=== PATIENT | male | born 1970 | race Asian ===

== ENCOUNTER 2018-04-03 08:58 | Inpatient (IN) | payer BC, MEDICAID ==
[~2018-04-03] VITALS: Ht 162.6 cm; Wt 125.3 kg
[2018-04-03] MEDS ORDERED: cefTRIAXone 1GM/50ML D5W 50 ML IV ONE (09:15)
[2018-04-03 09:37] LABS: Basophils # (auto) 0.1 uL; Eosinophils # (auto) 0 uL; Eosinophils % (auto) 0.3 % (0.0-7.0); Lymphocytes # (auto) 1.8 uL; Monocytes # (auto) 1.8 uL
[2018-04-03 09:38] LABS: Basophils % (auto) 0.5 % (0.0-2.0); Hematocrit 50.5 % (41.0-53.0); Hemoglobin 16.2 g/dL (13.5-17.5); Lymphocytes % (auto) 13.2 % (10.0-50.0); Mean Corpuscular Hemoglobin 21.3 pg (28.0-32.0); Mean Corpuscular Volume 66.6 fL (80.0-100.0); Neutrophils # (auto) 10.1 uL; Nucleated Red Blood Cells % 0.4 %; Platelet Count (auto) 124 10^3/uL (140-450); Red Blood Cells 7.58 10^6/uL (4.5-5.90); Red Cell Distribution Width 18.6 % (11.8-14.3); White Blood Cell 13.8 10^3/uL (4.4-10.8)
[2018-04-03 09:50] LABS: INR 1.28 (0.9-1.15); Partial Thromboplastin Time 27.3 sec (23.78-33.04); Prothrombin Time 13.5 sec (9.27-12.13)
[2018-04-03 09:54] LABS: Alanine Aminotransferase 24 U/L (16-61); Albumin 3.4 g/dL (3.4-5.0); Anion Gap 7 (5-15); Aspartate Aminotransferase 23 U/L (15-37); BUN/Creatinine Ratio 14.6; Blood Urea Nitrogen 13 mg/dL (7-18); Calcium 7.9 mg/dL (8.5-10.1); Carbon Dioxide 32 mmol/L (21-32); Chloride 99 mmol/L (98-107); GFR African American 119 mL/min; GFR Non-African American 98 mL/min; Glucose 92 mg/dL (74-106); Magnesium 2.3 mg/dL (1.6-2.6); Sodium 138 mmol/L (136-145)
[2018-04-03 09:59] LABS: Alkaline Phosphatase 41 U/L (45-117); Bilirubin, Total 1.8 mg/dL (0.2-1.0); Total Protein 7.4 g/dL (6.4-8.2)
[2018-04-03 10:14] LABS: Urine Bacteria NONE SEEN /hpf (None Seen); Urine Blood Negative /uL (Negative); Urine Mucus FEW (None Seen); Urine Specific Gravity 1.029 (1.001-1.035); Urine WBC 1 /hpf (0 - 3)
[2018-04-03] MEDS ORDERED: AZITHROMYCIN 500MG/ 250ML 250 ML IV ONE (10:15)
[2018-04-03] MEDS ORDERED: NITROGLYCERIN 0.4 MG SL TAB SL PRN (12:30)
[2018-04-03] MEDS ORDERED: MORPHINE SULFATE 10 MG/ML INJ 1ML SDV IV PRN (12:30)
[2018-04-03] MEDS ORDERED: ACET250T3 PO (14:56)
[2018-04-03] MEDS ORDERED: ASP81EC PO (14:56)
[2018-04-03] MEDS ORDERED: ALBUAER3 IN (14:56)
[2018-04-03] MEDS ORDERED: PRE5T (14:56)
[2018-04-03] MEDS ORDERED: METO25TA62 PO (14:56)
[2018-04-03] MEDS ORDERED: LISI2.5T47 PO (14:56)
[2018-04-03] MEDS ORDERED: ATOR40TA52 PO (14:56)
[2018-04-03] MEDS ORDERED: FURO40TA4 PO (14:56)
[2018-04-03] MEDS ORDERED: TOPI25CA5 PO (14:56)
[2018-04-03] MEDS ORDERED: NIFE30TA76 PO (14:56)
[2018-04-03] MEDS: BUDESONIDE (INHALATION) 0.5 MG/2 ML NEB NEB SCH (18:00)
[2018-04-03] MEDS: ALBUTEROL SULF 2.5 MG/0.5ML(0.5%) NEB SOLN NEB SCH (18:00)
[2018-04-03] MEDS: IPRATROPIUM BROM 0.5 MG/2.5ML INH SOL NEB SCH (18:00)
[2018-04-03] MEDS: ATORVASTATIN 20 MG TAB PO SCH (21:41)
[2018-04-03 22:00] VITALS: BP 103/62
--- NOTE | 2018-04-03 22:15 | NUR ---
TELE ADMIT FROM ER RECEIVED PATIENT VIA WHEELCHAIR FROM ER. PATIENT A/O X4, AMBULATORY. NO S/S OF DISTRESS, PATIENT BECOMES SOB WITH EXERTION. PT ON 3L NC, RT AT BEDSIDE SETTING UP CPAP. PATIENT ON TELE MONITOR #6 AND TELE READING IS SINUS RHYTHM @86. PATIENT SKIN INTACT, ECCHYMOSIS NOTED TO LEFT AND RIGHT SHOULDER, PATIENT STATES "IN MY CULTURE WE BELIEVE IN COINING SO THATS WHAT THE BRUISING IS FROM". PATIENT DENIES PAIN AT THIS TIME. UPDATED PATIENT ON PLAN OF CARE, VERBALIZED UNDERSTANDING. BED LOCKED IN LOW POSITION, CALL LIGHT WITHIN REACH, WILL CONTINUE TO MONITOR PATIENT Q1HR AND PRN.
[2018-04-03] MEDS ORDERED: INFLUENZA QUAD 2018-2019 0.5 ML SYRG IM ONE (23:30)
--- NOTE | 2018-04-04 00:40 | NUR ---
RT NOTE PT PLACED ON BIPAP ON STATED SETTINGS WITH MEDIUM MASK. BIPAP IS PLUGGED TO RED OUTLET. LEAK TEST DONE AND PASSED. ALARMS ARE ON AND AUDIBLE AT NURSES STATION. PT ON BEDSIDE POX PER PROTOCOL.PT SHOWN THE QUICK RELEASE CLIPS ON MASK AND APPEARS TO UNDERSTAND. PT APPEARS TO TOLERATE CURRENT SETTINGS AT THIS TIME. CONT ORDERED SPO2 99% Addendum: 04/05/18 at 0004 by Ana Avery RT Amended: Links added.
[2018-04-04] MEDS: ALBUTEROL SULF 2.5 MG/0.5ML(0.5%) NEB SOLN NEB SCH ×5 (00:46→19:25)
[2018-04-04] MEDS: IPRATROPIUM BROM 0.5 MG/2.5ML INH SOL NEB SCH ×5 (00:46→19:24)
[2018-04-04 03:29] VITALS: BP 103/62
[2018-04-04 05:00] VITALS: BP 124/86
[2018-04-04] MEDS: BUDESONIDE (INHALATION) 0.5 MG/2 ML NEB NEB SCH ×2 (06:06→18:33)
[2018-04-04 06:14] LABS: Basophils # (auto) 0.1 uL; Basophils % (auto) 0.7 % (0.0-2.0); Eosinophils # (auto) 0.1 uL; Eosinophils % (auto) 1.4 % (0.0-7.0); Hematocrit 48.1 % (41.0-53.0); Hemoglobin 15.3 g/dL (13.5-17.5); Lymphocytes # (auto) 2.1 uL; Lymphocytes % (auto) 19.6 % (10.0-50.0); Mean Corpuscular Hemoglobin 21.4 pg (28.0-32.0); Mean Corpuscular Hgb Conc. 31.8 g/dL (32.0-36.0); Mean Corpuscular Volume 67.2 fL (80.0-100.0); Monocytes # (auto) 1.2 uL; Monocytes % (auto) 11.3 % (0.0-12.0); Neutrophils # (auto) 7.2 uL; Nucleated Red Blood Cells % 0.6 %; Platelet Count (auto) 107 10^3/uL (140-450); Red Blood Cells 7.16 10^6/uL (4.5-5.90); Red Cell Distribution Width 19.1 % (11.8-14.3); White Blood Cell 10.8 10^3/uL (4.4-10.8)
[2018-04-04 06:17] LABS: Albumin 3.3 g/dL (3.4-5.0); Calcium 7.7 mg/dL (8.5-10.1); Magnesium 2.5 mg/dL (1.6-2.6); Potassium 4.2 mmol/L (3.5-5.1)
[2018-04-04 06:22] LABS: BUN/Creatinine Ratio 22.4; Total Protein 7.2 g/dL (6.4-8.2)
--- NOTE | 2018-04-04 07:27 | NUR ---
Opening Shift Note Assumed care of patient, awake and alert. No S/S of distress/SOB, reports chest pain from coughing. Insructed on POC and to call for assist PRN, will continue to monitor for changes Q1hr and PRN.
[2018-04-04] MEDS ORDERED: HYDROmorphone HCL 2 MG/ML VL IV PRN (07:45)
[2018-04-04] MEDS: HYDROcodone-ACET 10/325MG TAB PO PRN ×2 (08:30→16:00)
[2018-04-04 08:42] VITALS: BP 100/60
[2018-04-04] MEDS: cefTRIAXone 1GM/50ML D5W 50 ML IV SCH (09:01)
[2018-04-04] MEDS ORDERED: FUROSEMIDE 20 MG TAB PO SCH (10:00)
[2018-04-04] MEDS ORDERED: CLOPIDOGREL BISULFATE 75 MG TAB PO SCH (10:00)
[2018-04-04] MEDS: AZITHROMYCIN 500MG/ 250ML 250 ML IV SCH (10:47)
[2018-04-04] MEDS: ASPirin-EC 81 mg tab PO SCH (11:03)
[2018-04-04] MEDS: PANTOPRAZOLE 40 MG/10 ML VIAL IV SCH (11:03)
--- NOTE | 2018-04-04 12:00 | NUR ---
RECEIVED PATIENT RECEIVED PATIENT. PATIENT ALERT AND AWAKE LAYING IN BED. PATIENT IS ON 2 L NC WITH EVEN AND UNLABORED RESPIRATIONS. NO S/S OF DISTRESS/SOB. PATIENT STATES PAIN IS 3/10 UPPER SIDE/LOWER CHEST. PATIENT DECLINES PAIN MEDICATIONS AT THIS TIME AND STATES HE MIGHT REQUEST IT LATER. WILL CONTINUE TO MONITOR Q1H AND PRN.
[2018-04-04 12:52] VITALS: BP 91/56
[2018-04-04] MEDS ORDERED: methylPREDNISolone SOD SUCC 40 MG/ML VL IV ONE (14:45)
[2018-04-04] MEDS ORDERED: FUROSEMIDE 40 MG/4 ML VIAL IV ONE (14:45)
--- NOTE | 2018-04-04 15:10 | NUR ---
URINE DRUG SCREEN COLLECTED AN SENT TO LAB VIA BULLET.
--- NOTE | 2018-04-04 15:30 | NUR ---
I faxed clinical information to [facility] and [facility] including ER notes, H&P, labs, vitals, medication list and MD progress notes.
[2018-04-04 15:40] LABS: Alcohol, Urine < 3.0 mg/dL (0-5); Amphetamine Screen, Urine NEGATIVE (NEGATIVE); Barbiturate Scree,Urine NEGATIVE (NEGATIVE); Benzodiazephine Screen, Urine NEGATIVE (NEGATIVE); Cannabinoid Screen, Urine NEGATIVE (NEGATIVE); Cocaine Screen, Urine NEGATIVE (NEGATIVE); Opiate Scree,Urine NEGATIVE (NEGATIVE); Phencyclidine Screen, Urine NEGATIVE (NEGATIVE)
--- NOTE | 2018-04-04 16:15 | NUR ---
SPUTUM CULTURE COLLECTED AND SENT TO LAB VIA BULLET.
[2018-04-04 16:41] VITALS: BP 121/66
[2018-04-04] MEDS: TOPIRAMATE 25 MG TAB PO SCH (17:12)
--- NOTE | 2018-04-04 17:15 | NUR ---
RAPID FLU A&B COLLECTED AND SENT TO LAB VIA BULLET
--- NOTE | 2018-04-04 19:15 | NUR ---
Closing Note Patient awake and alert. No S/S of distress/SOB or pain at this time. Care endorsed to reyna YUNG RN.
--- NOTE | 2018-04-04 19:40 | NUR ---
OPENING SHIFT NOTE RECEIVED REPORT FROM DAYSHIFT RN. PATIENT RESTING SITTING UP IN BED, NO S/S OF DISTRESS OR SOB. PATIENT DENIES PAIN AT THIS TIME. PT A/O X4, AMBULATORY, ON 3L NC. PT UPDATED ON POC, VERBALIZED UNDERSTANDING. BED LOCKED IN LOW POSITION, CALL LIGHT WITHIN REACH. WILL CONTINUE TO MONITOR PATIENT Q1HR AND PRN.
[2018-04-04] MEDS: ATORVASTATIN 20 MG TAB PO SCH (21:55)
[2018-04-04 22:00] VITALS: BP 109/74
[2018-04-05 04:54] VITALS: BP 124/82
[2018-04-05] MEDS: BUDESONIDE (INHALATION) 0.5 MG/2 ML NEB NEB SCH ×2 (05:46→20:00)
[2018-04-05] MEDS: IPRATROPIUM BROM 0.5 MG/2.5ML INH SOL NEB SCH ×3 (05:46→20:00)
[2018-04-05] MEDS: ALBUTEROL SULF 2.5 MG/0.5ML(0.5%) NEB SOLN NEB SCH ×3 (05:46→20:00)
[2018-04-05 06:52] LABS: Basophils # (auto) 0 uL; Eosinophils # (auto) 0 uL; Eosinophils % (auto) 0.2 % (0.0-7.0); Hemoglobin 15.4 g/dL (13.5-17.5)
[2018-04-05 06:54] LABS: Basophils % (auto) 0.2 % (0.0-2.0); Hematocrit 48.4 % (41.0-53.0); Lymphocytes # (auto) 1.2 uL; Lymphocytes % (auto) 13.2 % (10.0-50.0); Mean Corpuscular Hemoglobin 21.5 pg (28.0-32.0); Mean Corpuscular Hgb Conc. 31.9 g/dL (32.0-36.0); Mean Corpuscular Volume 67.4 fL (80.0-100.0); Monocytes # (auto) 0.5 uL; Neutrophils # (auto) 7.2 uL; Neutrophils % (auto) 80.4 % (37.0-80.0); Nucleated Red Blood Cells % 0.7 %; Platelet Count (auto) 105 10^3/uL (140-450); Red Blood Cells 7.18 10^6/uL (4.5-5.90); Red Cell Distribution Width 18.6 % (11.8-14.3)
[2018-04-05 07:00] LABS: Chloride 92 mmol/L (98-107); Potassium 4.4 mmol/L (3.5-5.1); Sodium 135 mmol/L (136-145)
[2018-04-05 07:16] LABS: Anion Gap 5 (5-15); BUN/Creatinine Ratio 21.3; Blood Urea Nitrogen 16 mg/dL (7-18); Carbon Dioxide 38 mmol/L (21-32); GFR African American 145 mL/min; GFR Non-African American 120 mL/min; Glucose 79 mg/dL (74-106)
[2018-04-05 07:17] LABS: Calcium 8.3 mg/dL (8.5-10.1)
[2018-04-05 08:53] VITALS: BP 115/75
[2018-04-05] MEDS: ASPirin-EC 81 mg tab PO SCH (09:57)
[2018-04-05] MEDS: cefTRIAXone 1GM/50ML D5W 50 ML IV SCH (09:57)
[2018-04-05] MEDS: CLOPIDOGREL BISULFATE 75 MG TAB PO SCH (09:58)
[2018-04-05] MEDS: AZITHROMYCIN 500MG/ 250ML 250 ML IV SCH (09:59)
[2018-04-05] MEDS: LISINOPRIL 5 MG TAB PO SCH (09:59)
[2018-04-05] MEDS: FUROSEMIDE 40 MG/4 ML VIAL IV SCH (09:59)
[2018-04-05] MEDS: methylPREDNISolone SOD SUCC 40 MG/ML VL IV SCH (10:00)
[2018-04-05] MEDS ORDERED: ASPirin-EC 81 mg tab PO SCH (10:00)
[2018-04-05] MEDS: ENOXAPARIN SOD 40 MG/0.4 ML SYRINGE SC SCH (10:00)
[2018-04-05] MEDS ORDERED: INFLUENZA QUAD 2018-2019 0.5 ML SYRG IM ONE (10:20)
[2018-04-05] MEDS: PANTOPRAZOLE 40 MG/10 ML VIAL IV SCH (10:53)
[2018-04-05] MEDS: TOPIRAMATE 25 MG TAB PO SCH (10:53)
[2018-04-05 13:00] VITALS: BP 101/64
[2018-04-05 13:38] LABS: Hepatitis B Surface Antibody Positive
[2018-04-05 14:15] LABS: Hepatitis A Total Antibody Positive
[2018-04-05 15:29] LABS: Hepatitis B Surface Antigen Negative (Negative); Hepatitis C Antibody Negative (Negative)
[2018-04-05 15:30] LABS: Hepatitis B Core Total AB Negative
[2018-04-05 16:47] VITALS: BP 93/63
--- NOTE | 2018-04-05 19:24 | NUR ---
CLOSING NOTE SHIFT REPORT GIVEN TO AIRPORT RAMP ATTENDANT RNJEREMI. PATIENT IN BED LOW LOCK POSITION, CALL LIGHT IN REACH. IV PATENT. NO S/S OF DISTRESS, PAIN, SOB.
--- NOTE | 2018-04-05 19:45 | NUR ---
Opening Shift Note Assumed care of patient, awake and alert. No S/S of distress/SOB or pain. Instructed on POC and to call for assist PRN. Bed in lowest locked position, call light within reach, side rails up x2. Will continue to monitor for changes Q1hr and PRN.
--- NOTE | 2018-04-05 19:50 | NUR ---
Opening Shift Note Assumed care of patient, awake and alert. Patient currently shivering aggressively and stating "I'm cold" blood sugar and blood pressure checked and are within normal limits. Girlfriend at bedside, states "he always gets like this after he gets home from dialysis." Instructed on POC and to call for assist PRN. Bed in lowest locked position call light within reach, siderails up x2. Will continue to monitor for changes Q1hr and PRN. Addendum: 04/06/18 at 0139 by JEREMI BRADEN OCA, RN Discard this opening shift note, incorrect patient.
[2018-04-05] MEDS: ATORVASTATIN 20 MG TAB PO SCH (21:23)
[2018-04-05 21:50] VITALS: BP 105/54
[2018-04-06] MEDS: ALBUTEROL SULF 2.5 MG/0.5ML(0.5%) NEB SOLN NEB SCH ×4 (01:12→19:38)
[2018-04-06] MEDS: IPRATROPIUM BROM 0.5 MG/2.5ML INH SOL NEB SCH ×4 (01:12→19:38)
[2018-04-06 04:39] VITALS: BP 99/69
[2018-04-06 05:56] LABS: Basophils # (auto) 0 uL; Basophils % (auto) 0.2 % (0.0-2.0); Eosinophils # (auto) 0.1 uL; Lymphocytes # (auto) 1.4 uL
[2018-04-06 06:01] LABS: Eosinophils % (auto) 0.9 % (0.0-7.0); Hematocrit 48.3 % (41.0-53.0); Hemoglobin 15.7 g/dL (13.5-17.5); Lymphocytes % (auto) 16.7 % (10.0-50.0); Mean Corpuscular Hemoglobin 21.7 pg (28.0-32.0); Mean Corpuscular Hgb Conc. 32.4 g/dL (32.0-36.0); Mean Corpuscular Volume 66.7 fL (80.0-100.0); Monocytes # (auto) 0.9 uL; Monocytes % (auto) 10.4 % (0.0-12.0); Neutrophils # (auto) 6.2 uL; Neutrophils % (auto) 71.8 % (37.0-80.0); Nucleated Red Blood Cells % 0.2 %; Platelet Count (auto) 147 10^3/uL (140-450); Red Blood Cells 7.24 10^6/uL (4.5-5.90); Red Cell Distribution Width 18.4 % (11.8-14.3); White Blood Cell 8.7 10^3/uL (4.4-10.8)
[2018-04-06] MEDS: BUDESONIDE (INHALATION) 0.5 MG/2 ML NEB NEB SCH ×2 (06:15→08:33)
[2018-04-06 06:17] LABS: Calcium 8.3 mg/dL (8.5-10.1); Potassium 3.5 mmol/L (3.5-5.1)
[2018-04-06 06:20] LABS: BUN/Creatinine Ratio 22.5
--- NOTE | 2018-04-06 06:30 | NUR ---
PT WAS REMOVED FROM THE BIPAP AND PLACED ON A 3L NC. NO SOB NOTED. PT IS AWARE TO PRESS THE CALL LIGHT IF HE WANTS TO GO BACK ONTO THE BIPAP FOR PRN USE.
[2018-04-06 08:55] VITALS: BP 93/58
[2018-04-06] MEDS: PANTOPRAZOLE 40 MG/10 ML VIAL IV SCH (09:22)
[2018-04-06] MEDS: ASPirin-EC 81 mg tab PO SCH (09:23)
[2018-04-06] MEDS: cefTRIAXone 1GM/50ML D5W 50 ML IV SCH (09:23)
[2018-04-06] MEDS: FUROSEMIDE 40 MG/4 ML VIAL IV SCH (09:23)
[2018-04-06] MEDS: methylPREDNISolone SOD SUCC 40 MG/ML VL IV SCH (09:23)
[2018-04-06] MEDS: TOPIRAMATE 25 MG TAB PO SCH (09:23)
[2018-04-06] MEDS: CLOPIDOGREL BISULFATE 75 MG TAB PO SCH (09:23)
[2018-04-06] MEDS: AZITHROMYCIN 500MG/ 250ML 250 ML IV SCH (09:24)
[2018-04-06] MEDS: LISINOPRIL 5 MG TAB PO SCH (09:24)
[2018-04-06 11:32] VITALS: BP 101/66
[2018-04-06] MEDS: ENOXAPARIN SOD 40 MG/0.4 ML SYRINGE SC SCH (12:29)
--- NOTE | 2018-04-06 13:25 | NUR ---
Home oxygen update per patient. Patient stated he spoke to Marcelle through [employer]. She states he is able to get home oxygen when discharged with his insurance through [employer], but is unable to get a PCP until next month when his case transfers over. Thus far, no arrangements, by patient, have been made for oxygen delivery. Will continue to monitor the situation.
--- NOTE | 2018-04-06 13:38 | NUR ---
I spoke with Dr. Oliveira regarding the plan of care for this patient-I asked her to order an ABG and home oxygen order if qualifies.
--- NOTE | 2018-04-06 13:40 | NUR ---
PATIENT REMOVED FROM OXYGEN, RT YANDEL NOTIFIED OF PATIENT ORDER FOR ABG ON ROOM AIR.
--- NOTE | 2018-04-06 14:11 | NUR ---
I called [facility] Darius [phone] and left message asking for authorization for patient's stay as well as for who to order home oxygen from/how to get auth for home oxygen-awaiting return call. I also called [facility] and spoke with Aydee [phone] asking for auth for home oxygen/and contracted providers-she will give me a call back.
--- NOTE | 2018-04-06 14:46 | NUR ---
Nutrition Assessment Notes please see attached link for complete assessment Est. Needs ABW [id number] kcal (17-20 kcal/kgBW), 73-92 gms pro (0.8-1.0 gms/kgBW). Will continue to monitor pertinent labs and reassess nutrient need prn Addendum: 04/06/18 at [address] Amended: Links added.
--- NOTE | 2018-04-06 14:59 | NUR ---
I spoke with Josiah at [facility] [phone], she said they do not give authorizations for patient's hospital stay until the patient is discharged. She also said that we can use [employer] for home oxygen-I relayed this information to Margot-social work nurse.
[2018-04-06 16:54] VITALS: BP 92/53
--- NOTE | 2018-04-06 18:54 | NUR ---
CLOSING NOTE PATIENT IN BED, LOW LOCK POSITION, CALL LIGHT WITHIN REACH. OXYGEN ON, NO S/S OF DISTRESS NOTED.
[2018-04-06] MEDS: ATORVASTATIN 20 MG TAB PO SCH (21:32)
[2018-04-06 22:00] VITALS: BP 99/57
[2018-04-07] VITALS (9 sets, daily range): BP systolic 90–126; BP diastolic 57–71
[2018-04-07 06:56] LABS: Calcium 8.5 mg/dL (8.5-10.1); Potassium 3.6 mmol/L (3.5-5.1)
[2018-04-07 06:59] LABS: BUN/Creatinine Ratio 26.7
--- NOTE | 2018-04-07 07:52 | NUR ---
Opening Shift Note Assumed care of patient, awake and alert. No S/S of distress/SOB or pain. Instructed on POC and to call for assist PRN, will continue to monitor for changes Q1hr and PRN. Bed in lowest position, side rails up x2, call light within reach.
[2018-04-07] MEDS: ALBUTEROL SULF 2.5 MG/0.5ML(0.5%) NEB SOLN NEB SCH ×3 (08:33→18:52)
[2018-04-07] MEDS: BUDESONIDE (INHALATION) 0.5 MG/2 ML NEB NEB SCH ×2 (08:33→18:52)
[2018-04-07] MEDS: IPRATROPIUM BROM 0.5 MG/2.5ML INH SOL NEB SCH ×3 (08:33→18:52)
[2018-04-07] MEDS: LISINOPRIL 5 MG TAB PO SCH (08:51)
[2018-04-07] MEDS: FUROSEMIDE 40 MG/4 ML VIAL IV SCH (08:51)
[2018-04-07] MEDS: PANTOPRAZOLE 40 MG/10 ML VIAL IV SCH (09:31)
[2018-04-07] MEDS: ENOXAPARIN SOD 40 MG/0.4 ML SYRINGE SC SCH (09:31)
[2018-04-07] MEDS: TOPIRAMATE 25 MG TAB PO SCH (09:31)
[2018-04-07] MEDS: predniSONE 20 MG TAB PO SCH (09:31)
[2018-04-07] MEDS: CLOPIDOGREL BISULFATE 75 MG TAB PO SCH (09:31)
[2018-04-07] MEDS: ASPirin-EC 81 mg tab PO SCH (09:31)
[2018-04-07] MEDS: cefTRIAXone 1GM/50ML D5W 50 ML IV SCH (09:47)
[2018-04-07] MEDS: AZITHROMYCIN 500MG/ 250ML 250 ML IV SCH (09:48)
--- NOTE | 2018-04-07 13:17 | NUR ---
SOCIAL SERVICE I HAVE SPOKEN WITH RODOLFO MICHOACANO TWICE TODAY REGARDING PENDING CONSULT FOR HOME O2. RODOLFO IS STILL ATTEMPTING TO REACH [facility] TO CONFIRM IF HOME O2 HAS BEEN ARRANGED, SHE STATED SHE WILL CALL ME WHEN SHE RECEIVED A PHONE CALL BACK FROM [facility].
--- NOTE | 2018-04-07 16:00 | NUR ---
DR ZIMMERMAN IN TO SEE PATIENT NEW CARDIO CONSULT PLACED FOR DR LEOS TO SEE PATIENT. PLAN FOR POSSIBLE DISCHARGE MONDAY OR MONDAY IF CLEARED BY DR LEOS. PATIENT IS AWARE OF UPDATED PLAN OF CARE AND ALL QUESTIONS AND CONCERNS ADDRESSED.
[2018-04-07] MEDS: ATORVASTATIN 20 MG TAB PO SCH (22:04)
[2018-04-08] VITALS (7 sets, daily range): BP systolic 91–109; BP diastolic 58–86
[2018-04-08] MEDS: IPRATROPIUM BROM 0.5 MG/2.5ML INH SOL NEB SCH ×4 (05:55→18:13)
[2018-04-08] MEDS: BUDESONIDE (INHALATION) 0.5 MG/2 ML NEB NEB SCH ×2 (05:55→18:13)
[2018-04-08] MEDS: ALBUTEROL SULF 2.5 MG/0.5ML(0.5%) NEB SOLN NEB SCH ×4 (05:55→18:13)
[2018-04-08] MEDS: LISINOPRIL 5 MG TAB PO SCH (10:00)
[2018-04-08] MEDS: ENOXAPARIN SOD 40 MG/0.4 ML SYRINGE SC SCH (10:15)
[2018-04-08] MEDS: FUROSEMIDE 40 MG/4 ML VIAL IV SCH (10:16)
[2018-04-08] MEDS: predniSONE 20 MG TAB PO SCH (10:16)
[2018-04-08] MEDS: cefTRIAXone 1GM/50ML D5W 50 ML IV SCH (10:16)
[2018-04-08] MEDS: PANTOPRAZOLE 40 MG/10 ML VIAL IV SCH (10:16)
[2018-04-08] MEDS: CLOPIDOGREL BISULFATE 75 MG TAB PO SCH (10:16)
[2018-04-08] MEDS: ASPirin-EC 81 mg tab PO SCH (10:16)
[2018-04-08] MEDS: TOPIRAMATE 25 MG TAB PO SCH (10:16)
[2018-04-08] MEDS: AZITHROMYCIN 500MG/ 250ML 250 ML IV SCH (11:03)
--- NOTE | 2018-04-08 11:08 | NUR ---
PAGED ASMITA RE: FF UP ON THE HOME O2 REQUEST
--- NOTE | 2018-04-08 11:21 | NUR ---
ASMITA CALLED AND SAID THAT I HAVE TO CALL [facility] IF WHEN ARE THEY GOING TO DELIVER THE O2 AT [phone].
--- NOTE | 2018-04-08 12:09 | NUR ---
CALLED [facility] AND SPOKE WITH CELINA [phone], PER CELINA THEY DID NOT RECEIVED ANY DOCUMENT NEEDED TO START THE PROCESS OF DELIVERING HOME O2. CONFIRMED WITH CELINA IF WHAT ARE THE DOCUMENTS THAT THEY NEEDED FOR THEM TO START THE PROCESS, PER CELINA RX FOR HOME O2, FACE SHEET AND H&P. WILL LET KNOW RE: THE NEED FOR THE SCRIPT.
[2018-04-08] MEDS ORDERED: FUROSEMIDE 20 MG/2 ML VIAL IV ONE (14:30)
--- NOTE | 2018-04-08 14:50 | NUR ---
spoke with md lozada at the station re: the home O2 rx that is needed to start the process of ordering it and getting it delivered and she did provided it. informed md lozada also re: the low blood pressure and that lisinopril was not given and that bp dropped when given lasix this am and the latest bp is 96/59 if she wanted me still to give her one time order dose of lasix 20mg iv as per md peng renteria that medication for now.
--- NOTE | 2018-04-08 14:58 | NUR ---
faxed documents as per juris of mady to [phone] [facility] for home O2, abg and face sheet. will ff up
--- NOTE | 2018-04-08 15:32 | NUR ---
CALLED [facility] [phone] AND SPOKE WITH [facility], PER [facility] WHEN IT IS NOT A STAT ORDER AND NOT PENDING FOR DC THEY USUALLY RECEIVE THE FAX UPDATE TO THEIR SYSTEM AFTER 4 HOURS SO TRY TO FF UP AFTER 4 HOURS. WILL CALL AGAIN.
--- NOTE | 2018-04-08 19:35 | NUR ---
Opening Shift Note Assumed care of patient, awake and alert. No S/S of distress/SOB or pain. On O2 at 3 lpm/NC. Discussed on POC and instructed to call for assist as needed, patient verbalized understanding, call light within reach, will continue to monitor for changes Q1hr and PRN.
[2018-04-08] MEDS: ATORVASTATIN 20 MG TAB PO SCH (21:10)
[2018-04-09 04:51] VITALS: BP 95/62
[2018-04-09] MEDS: ALBUTEROL SULF 2.5 MG/0.5ML(0.5%) NEB SOLN NEB SCH ×4 (05:57→18:21)
[2018-04-09] MEDS: BUDESONIDE (INHALATION) 0.5 MG/2 ML NEB NEB SCH ×2 (05:57→18:21)
[2018-04-09] MEDS: IPRATROPIUM BROM 0.5 MG/2.5ML INH SOL NEB SCH ×4 (05:57→18:21)
--- NOTE | 2018-04-09 06:41 | NUR ---
Called [facility] to follow up on Home O2 order, per Hailee (staff of [facility]), they received the faxed orders yesterday but did not processed it yet. A separate form is to be filled out and completed. Received the form from [facility] and will endorse to dayshift RN
--- NOTE | 2018-04-09 07:05 | NUR ---
Spoke to patient, per patient, [facility] Staff called him last night around 2200 confirming patient's [address]
[2018-04-09 09:00] VITALS: BP 97/65
[2018-04-09] MEDS: cefTRIAXone 1GM/50ML D5W 50 ML IV SCH (09:00)
[2018-04-09] MEDS: AZITHROMYCIN 500MG/ 250ML 250 ML IV SCH (10:00)
[2018-04-09] MEDS: ENOXAPARIN SOD 40 MG/0.4 ML SYRINGE SC SCH (10:00)
[2018-04-09] MEDS: SPIRONOLACTONE 25 MG TAB PO SCH (10:00)
[2018-04-09] MEDS: predniSONE 20 MG TAB PO SCH (10:25)
[2018-04-09] MEDS: ASPirin-EC 81 mg tab PO SCH (10:25)
[2018-04-09] MEDS: TOPIRAMATE 25 MG TAB PO SCH (10:25)
[2018-04-09] MEDS: CLOPIDOGREL BISULFATE 75 MG TAB PO SCH (10:25)
[2018-04-09] MEDS: FUROSEMIDE 40 MG/4 ML VIAL IV SCH (10:25)
[2018-04-09 13:00] VITALS: BP 95/63
--- NOTE | 2018-04-09 15:39 | NUR ---
Nutrition Follow-up Notes Wt.: 125.3 kg as of yesterday. Pt's on oxygen via nasal cannula, denies any discomfort when rounded this morning. 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 Pt's currently on Cardiac: 2 gms Na, Low Chol, Low Fat diet with adequate PO intake aeb 95% ave. consumed meals (x7) in last 2.5 days. Provide verbal and written nutrition educ e: current prescribed therapeutic diet as well as FDI for Lasix and he verbalized understanding. Noted pt's for active Cardiology consult. Est. Needs ABW [id number] kcal (17-20 kcal/kgBW), 73-92 gms pro (0.8-1.0 gms/kgBW). Will continue to monitor pertinent labs and reassess nutrient need prn Labs: Na 131 L, Cl 93 L, Tot slick 2.8 H, Alb 2.8 L. Skin: Hunter scale 20, low risk, skin intact per senior information systems architect. GI: Pt had 1 BM 04/05/18 per senior information systems architect. PES: Altered nutrition related lab values r/t current/chronic medical condition aeb elev BUN,lipids, hypocalcemia, mild hypoalb Obesity r/t food intake more than body requirement aeb 212% IBW, BMI 47.4 kg/m2 and increased body adiposity. Will continue to monitor PO intake, skin status, pertinent labs and weight trend. F/u in 3 to 5 days. Rec.: 1.) Continue close supervision during meals. 2.) If Albumin level continues trending down, consider Prostat 1 pkt BID. 3.) Refer pt to RD for further nutrition education and weight monitoring upon discharge. 4.) Continue current plan of care.
[2018-04-09 16:41] VITALS: BP 100/72
[2018-04-09 20:00] VITALS: BP 101/59
[2018-04-09] MEDS: ATORVASTATIN 20 MG TAB PO SCH (21:44)
[2018-04-10] MEDS: IPRATROPIUM BROM 0.5 MG/2.5ML INH SOL NEB SCH ×5 (00:04→19:15)
[2018-04-10] MEDS: ALBUTEROL SULF 2.5 MG/0.5ML(0.5%) NEB SOLN NEB SCH ×5 (00:04→19:15)
[2018-04-10 04:40] VITALS: BP 112/60
[2018-04-10 05:21] LABS: Basophils # (auto) 0 uL; Basophils % (auto) 0.2 % (0.0-2.0); Hemoglobin 16.1 g/dL (13.5-17.5); Lymphocytes # (auto) 1.8 uL; Neutrophils # (auto) 7.1 uL; White Blood Cell 9.9 10^3/uL (4.4-10.8)
[2018-04-10 05:22] LABS: Eosinophils # (auto) 0.2 uL; Eosinophils % (auto) 1.8 % (0.0-7.0); Hematocrit 50.9 % (41.0-53.0); Mean Corpuscular Hgb Conc. 31.6 g/dL (32.0-36.0); Mean Corpuscular Volume 66.5 fL (80.0-100.0); Monocytes # (auto) 0.8 uL; Monocytes % (auto) 8.1 % (0.0-12.0); Neutrophils % (auto) 71.9 % (37.0-80.0); Nucleated Red Blood Cells % 0.2 %; Red Blood Cells 7.66 10^6/uL (4.5-5.90); Red Cell Distribution Width 18.6 % (11.8-14.3)
[2018-04-10 05:30] LABS: Anion Gap 5 (5-15); Blood Urea Nitrogen 26 mg/dL (7-18); Calcium 8.7 mg/dL (8.5-10.1); Carbon Dioxide 35 mmol/L (21-32); Chloride 96 mmol/L (98-107); Glucose 85 mg/dL (74-106); Potassium 4.2 mmol/L (3.5-5.1); Sodium 136 mmol/L (136-145)
[2018-04-10 05:32] LABS: BUN/Creatinine Ratio 25.2; GFR African American > 60 mL/min; GFR Non-African American > 60 mL/min
--- NOTE | 2018-04-10 05:35 | NUR ---
Patient requested Bipap to be taken off, RT made aware, hooked back patient to 3 Lpm/NC, will continue to monitor
[2018-04-10 05:46] LABS: Platelet Count (auto) 113 10^3/uL (140-450)
[2018-04-10] MEDS: BUDESONIDE (INHALATION) 0.5 MG/2 ML NEB NEB SCH ×2 (07:14→18:25)
[2018-04-10 09:15] VITALS: BP 101/63
[2018-04-10 09:18] VITALS: BP 101/63
[2018-04-10] MEDS: AZITHROMYCIN 500MG/ 250ML 250 ML IV SCH (10:00)
[2018-04-10] MEDS: ENOXAPARIN SOD 40 MG/0.4 ML SYRINGE SC SCH (10:00)
[2018-04-10] MEDS: cefTRIAXone 1GM/50ML D5W 50 ML IV SCH (10:36)
[2018-04-10] MEDS: FUROSEMIDE 40 MG/4 ML VIAL IV SCH (10:37)
[2018-04-10] MEDS: ASPirin-EC 81 mg tab PO SCH (10:38)
[2018-04-10] MEDS: TOPIRAMATE 25 MG TAB PO SCH (10:38)
[2018-04-10] MEDS: predniSONE 20 MG TAB PO SCH (10:38)
[2018-04-10] MEDS: SPIRONOLACTONE 25 MG TAB PO SCH (10:38)
[2018-04-10] MEDS: CLOPIDOGREL BISULFATE 75 MG TAB PO SCH (10:39)
--- NOTE | 2018-04-10 11:18 | NUR ---
MD ROUNDING [employer] form for home oxygen signed and placed in chart. MD will write new prescriptions and request to have filled by [facility], patient consents to pharmacy filling prescriptions.
--- NOTE | 2018-04-10 11:20 | NUR ---
Opening Shift Note Assumed care of patient, awake and alert. No S/S of distress/SOB or pain. Instructed on POC and to call for assist PRN, will continue to monitor for changes Q1hr and PRN.
[2018-04-10] MEDS ORDERED: CLOP75TA28 PO (12:13)
[2018-04-10 12:41] VITALS: BP 116/67
[2018-04-10] MEDS ORDERED: ALB5IS NEB (14:53)
[2018-04-10 16:47] VITALS: BP 101/63
--- NOTE | 2018-04-10 17:11 | NUR ---
[facility] PHONE CALL PLACED TO [facility] IN REGARDS TO HOME O2. BRYAN FOWLER STATES ALL INFORMATION HAS BEEN RECEIVED AND OXYGEN WILL BE DELIVERED TO HOSPITAL.
--- NOTE | 2018-04-10 17:15 | NUR ---
NEW PRESCRIPTIONS [facility] pharmacy can only fill albuterol, stating Pulmicort is out of stock and Plavix is active at [facility]. Patient requested new prescriptions be filled [facility] on [address], location verified. RN placed phone call to [facility] pharmacy, per pharmacy fax prescriptions and they will fill new orders. Prescription faxed, copy placed in chart.
[2018-04-10 19:53] VITALS: BP 101/63
--- NOTE | 2018-04-10 20:55 | NUR ---
Discharge instructions given as ordered. Encourage to follow up with PMD as instructed. All questions and concerns addressed. Patient verbalized understanding. Medication reconciliation form completed and copy given to patient. IV removed with catheter intact, pressure dressing applied. Patient taken to vehicle via wheelchair with all personal belongings and Oxygen tank accompanied by staff. No distress noted at time of departure.
--- NOTE | 2018-04-10 21:20 | NUR ---
Patient called back saying that his prescription that was faxed to [facility] was not filled because of the missing KOTA # of the MD. Tried to get hold of MD Oliveira but per tandem operator, cannot be page after 5pm. Spoke to patient and instructed him to garbage pick up man medicine tomorrow once we get hold of MD and get the KOTA #. Will endorse to daysraymundo RN
== END 2018-04-10 21:30 | disposition home or self-care (01) | DRG 720 ==
LOC: ER 08:58 → TELE 12:34 → TELE-WESTW 22:15 → WEST WING 04-08 12:07
PROVIDERS: ADMIT Nurse Practitioner Acute Care; ATTEND Internal Medicine
PROC: 5A09357 Assistance with Respiratory Ventilation, Less than 24 Consecutive Hours, Continuous Positive Airway Pressure (ICD-10-PCS; principal; 2018-04-03)
PROC: 5A09357 Assistance with Respiratory Ventilation, Less than 24 Consecutive Hours, Continuous Positive Airway Pressure (ICD-10-PCS; 2018-04-04)
PROC: 5A09357 Assistance with Respiratory Ventilation, Less than 24 Consecutive Hours, Continuous Positive Airway Pressure (ICD-10-PCS; 2018-04-05)
PROC: 5A09357 Assistance with Respiratory Ventilation, Less than 24 Consecutive Hours, Continuous Positive Airway Pressure (ICD-10-PCS; 2018-04-06)
PROC: 5A09357 Assistance with Respiratory Ventilation, Less than 24 Consecutive Hours, Continuous Positive Airway Pressure (ICD-10-PCS; 2018-04-07)
PROC: 5A09357 Assistance with Respiratory Ventilation, Less than 24 Consecutive Hours, Continuous Positive Airway Pressure (ICD-10-PCS; 2018-04-08)
PROC: 5A09357 Assistance with Respiratory Ventilation, Less than 24 Consecutive Hours, Continuous Positive Airway Pressure (ICD-10-PCS; 2018-04-09)
PROC: 5A09357 Assistance with Respiratory Ventilation, Less than 24 Consecutive Hours, Continuous Positive Airway Pressure (ICD-10-PCS; 2018-04-10)
DX: A41.9 Sepsis, unspecified organism (principal); J96.21 Acute and chronic respiratory failure with hypoxia; I50.43 Acute on chronic combined systolic (congestive) and diastolic (congestive) heart failure; E87.4 Mixed disorder of acid-base balance; J18.9 Pneumonia, unspecified organism; I11.0 Hypertensive heart disease with heart failure; I27.20 Pulmonary hypertension, unspecified; J44.0 Chronic obstructive pulmonary disease with (acute) lower respiratory infection; Z68.42 Body mass index [BMI] 45.0-49.9, adult; E66.9 Obesity, unspecified; E78.5 Hyperlipidemia, unspecified; I25.10 Atherosclerotic heart disease of native coronary artery without angina pectoris; G47.33 Obstructive sleep apnea (adult) (pediatric); J44.1 Chronic obstructive pulmonary disease with (acute) exacerbation; Z99.81 Dependence on supplemental oxygen; Z86.73 Personal history of transient ischemic attack (TIA), and cerebral infarction without residual deficits; Z95.5 Presence of coronary angioplasty implant and graft; I25.2 Old myocardial infarction; Z79.52 Long term (current) use of systemic steroids
CPT/HCPCS: 36415; 36600; 71045; 71046; 80048; 80053; 80061; 80307; 81001; 82805; 83605; 83690; 83735; 83880; 84443; 84484; 85025; 85610; 85730; 86704; 86706; 86708; 86803; 87040; 87070; 87205; 87340; 87804; 93005; 93306; 94640; 94660; 96365; 96367; 96375; C9113; G0378; J0696